=== PATIENT | male | born 1960 | race Caucasian/White ===

== ENCOUNTER 2020-02-11 19:10 | Emergency (ER) | payer OTHER, BC ==
[~2020-02-11] VITALS: Ht 185.4 cm; Wt 145.2 kg
[~2020-02-11 19:10] MED LIST: ASPIRIN325 PO; CARTIA XT300 M1 PO; HYDROCHLOROTHIA25 M2 PO; INSULIN SUBQ; LASIX 40 MG TAB40 M2 PO; LEVEMIR SUBQ; LISINOPRIL20 MG PO; METFORMIN HCL500 MG PO; MS CONTIN15 MG PO; NOVOLOG100 UNIT/1 SUBQ; REGULAR INSULIN SUBQ
[2020-02-11] MEDS ORDERED: amlodipine PO (19:25)
[2020-02-11] MEDS ORDERED: KEFLEX500 M1 PO (21:01)
[2020-02-11 21:11] VITALS: BP 105/65
== END 2020-02-11 21:15 | disposition home or self-care (01) ==
LOC: ER 19:10
DX: R04.0 Epistaxis (principal); I10 Essential (primary) hypertension; E11.9 Type 2 diabetes mellitus without complications; Z79.899 Other long term (current) drug therapy; Z87.891 Personal history of nicotine dependence; Z79.82 Long term (current) use of aspirin